=== PATIENT | female | born 2000 | race Asian ===

== ENCOUNTER 2024-02-10 19:34 | Day surgery (SDC) | payer BC ==
[2024-02-10] MEDS ORDERED: hydrALAZINE 20 MG/ML VIAL SLOW IVP PRN (20:09)
[2024-02-10 20:40] VITALS: BMI 27.7
[2024-02-10] MEDS: Lactated Ringer's 1,000 ML IV SCH (20:55)
[2024-02-10] MEDS: Acetaminophen 500 MG TAB PO SCH (21:45)
[2024-02-10 21:52] LABS: Bilirubin Neg (Negative); Blood, Urine Negative (Negative); Clarity Clear (Clear); Glucose, Urine (Dipstick) Normal (Negative); Ketone, Urine Negative (Negative); Leukocyte Negative (Negative); Nitrite Negative (Negative); Protein, Urine (Dipstick) Negative (Neg-Trace); Urobilinogen Normal mg/dL (Less than 2)
[2024-02-10 22:04] LABS: Bacteria/HPF None Seen HPF (None Seen); CAUTI Indications for Culture Pregnancy; RBC/HPF None Seen HPF (0-3); Squamous Epithelial 0-3 HPF (0-3); Urine Culture Reflex Yes Yes; WBC/HPF None Seen HPF (0-3)
== END 2024-02-10 22:48 | disposition home or self-care (01) ==
LOC: CSHLD/OP 19:34
PROVIDERS: ATTEND Obstetrics & Gynecology
DX: O47.03 False labor before 37 completed weeks of gestation, third trimester (principal); O99.891 Other specified diseases and conditions complicating pregnancy; M54.50 Low back pain, unspecified; O99.613 Diseases of the digestive system complicating pregnancy, third trimester; K21.9 Gastro-esophageal reflux disease without esophagitis; O99.513 Diseases of the respiratory system complicating pregnancy, third trimester; J45.909 Unspecified asthma, uncomplicated; Z79.899 Other long term (current) drug therapy; Z3A.34 34 weeks gestation of pregnancy
CPT/HCPCS: 81001; 87086; 87480; 87510; 87660

== ENCOUNTER 2024-02-11 15:42 | Inpatient (IN) | payer BC ==
[2024-02-11] MEDS ORDERED: hydrALAZINE 20 MG/ML VIAL SLOW IVP PRN (16:47)
[2024-02-11] MEDS ORDERED: Ibuprofen 800 MG TAB PO PRN (16:55)
[2024-02-11] MEDS ORDERED: Zolpidem Tartrate 5 MG TAB PO PRN (16:55)
[2024-02-11] MEDS ORDERED: Promethazine HCl 25 MG/ML VIAL IM PRN (16:55)
[2024-02-11] MEDS ORDERED: Carboprost 250 MCG/ML AMP IM PRN (16:55)
[2024-02-11] MEDS ORDERED: Methylergonovine 0.2 MG/ML VIAL IM PRN (16:55)
[2024-02-11] MEDS ORDERED: HYDROcodone/Acetaminophen 5/325 mg Tablet PO PRN ×2 (16:55)
[2024-02-11] MEDS ORDERED: Ondansetron PF 4 MG/2 ML Vial IVP PRN (16:55)
[2024-02-11] MEDS ORDERED: Lidocaine 1% (PF) 30 ML VIAL SC PRN (16:55)
[2024-02-11] MEDS ORDERED: Lactated Ringer's 1,000 ML IV SCH ×2 (17:00)
[2024-02-11] MEDS ORDERED: Oxytocin 30 units/NS 500 ML 500 ML IV SCH (17:00)
[2024-02-11] MEDS: Penicillin G Potassium 5 MILL.UNITS in Sodium Chloride 0.9% 100 ML IVPB SCH (17:28)
[2024-02-11] MEDS: Morphine 4 MG/ML VIAL SLOW IVP PRN (17:34)
[2024-02-11 17:42] VITALS: BMI 27.9
[2024-02-11 17:58] LABS: Hematocrit 40.6 % (34.9-44.5); Hemoglobin 14.2 g/dL (12.0-15.5); Mean Corpuscular Volume 82.9 fL (81.6-98.3); Mean Platelet Volume 10.6 fL (7.4-10.4); Platelet Count 254 10x3/uL (150-450); RBC Distribution Width 12.9 % (11.5-14.5); White Blood Cell (WBC) Count 12.8 10x3/uL (3.5-10.5)
[2024-02-11 18:26] LABS: HBsAg Index 0.15 S/CO (0-0.99); Hep B Surf Ag - L&D Non-Reactive S/CO (NonReactive)
[2024-02-11 18:28] LABS: Syphilis Antibody Nonreactive (Nonreactive); Syphilis Antibody Index 0.09 S/CO (<1.00 Non-Reactive)
[2024-02-11] MEDS: Penicillin G 2.5 MILL.units 2.5 MILL.UNITS in Premix 1 BAG IVPB SCH (21:38)
[2024-02-12] MEDS: Acetaminophen 500 MG TAB PO PRN (01:47)
[2024-02-12] MEDS: fentaNYL 50 mcg/mL 1 mL Vial SLOW IVP PRN (02:32)
[2024-02-12] MEDS ORDERED: Acetaminophen 325 MG TAB PO PRN (10:25)
[2024-02-12] MEDS ORDERED: diphenhydrAMINE 50 MG/ML VIAL IVP PRN (10:25)
[2024-02-12] MEDS ORDERED: ePHEDrine Sulfate 50 MG/10 ML VIAL SLOW IVP PRN (10:25)
[2024-02-12] MEDS ORDERED: Naloxone HCl 0.4 mg/ml Vial IVP PRN ×2 (10:25)
[2024-02-12] MEDS ORDERED: Promethazine HCl 25 MG/ML VIAL IM PRN (10:25)
[2024-02-12] MEDS ORDERED: Moisturizing Cream (Eucerin) 113 GM JAR TOP PRN (10:25)
[2024-02-12] MEDS ORDERED: Lactated Ringer's 500 ML IV PRN (10:25)
[2024-02-12] MEDS ORDERED: Ondansetron PF 4 MG/2 ML Vial IVP PRN (10:25)
[2024-02-12] MEDS ORDERED: Communication Order-Pharmacy FS SCH (10:30)
[2024-02-12] MEDS ORDERED: fentaNYL 2 mcg/Ropivacaine 0.2% Epidural 100 ML CADD EPIDURAL SCH (10:30)
[2024-02-12] MEDS: fentaNYL/Ropivacaine Epidural 100 ML ONE (11:06)
[2024-02-12] MEDS ORDERED: Bisacodyl 10 MG SUPP PR PRN (19:31)
[2024-02-12] MEDS ORDERED: hydrALAZINE 20 MG/ML VIAL SLOW IVP PRN (19:31)
[2024-02-12] MEDS ORDERED: Lanolin Ointment 7 GM TUBE TOP PRN (19:31)
[2024-02-12] MEDS ORDERED: Preparation H Ointment 28 GM TUBE PR PRN (19:31)
[2024-02-12] MEDS ORDERED: diphenhydrAMINE 25 MG CAP PO PRN (19:31)
[2024-02-12] MEDS ORDERED: Boostrix 0.5 ML (Tdap) VIAL (>/=7 yrs of age) IM ONE (19:31)
[2024-02-12] MEDS ORDERED: Milk Of Magnesia 30 ML UDCUP PO PRN (19:31)
[2024-02-12] MEDS: traMADol HCl 50 MG TAB PO PRN (19:45)
[2024-02-12] MEDS: Docusate 100 MG CAP PO SCH (22:18)
[2024-02-12] MEDS: Ibuprofen 800 MG TAB PO SCH (22:18)
[2024-02-13] MEDS: Ferrous Sulfate 325 MG TAB PO SCH (09:06)
[2024-02-13] MEDS: Prenatal Vitamin 1 TAB PO SCH (10:35)
[2024-02-13] MEDS ORDERED: Bupivacaine HCl 0.5%/Epinephrine 1:200,000/PF 30 ml Vial ONE (16:13)
[2024-02-13] MEDS: Benzocaine-Menthol 82.5 ML CAN TOP PRN (22:27)
[2024-02-14 09:18] VITALS: BP 98/67; TEMP 98.2
== END 2024-02-14 18:07 | disposition home or self-care (01) | DRG 807 ==
LOC: CSHLD/OP 15:42 → CSHLD 17:13 → CSHPED 02-12 20:15
PROVIDERS: ADMIT Obstetrics & Gynecology; ATTEND Obstetrics & Gynecology
PROC: 10E0XZZ Delivery of Products of Conception, External Approach (ICD-10-PCS; principal; 2024-02-12)
PROC: 0KQM0ZZ Repair Perineum Muscle, Open Approach (ICD-10-PCS; 2024-02-12)
DX: O60.14X0 Preterm labor third trimester with preterm delivery third trimester, not applicable or unspecified (principal); Z37.0 Single live birth; Z3A.34 34 weeks gestation of pregnancy; O70.1 Second degree perineal laceration during delivery
CPT/HCPCS: 36415; 51702; 76815; 85027; 86780; 86850; 86900; 86901; 87340; 99285; J2270; J2540; J3010; J3490